=== PATIENT | female | born 1975 | race Caucasian/White ===

== ENCOUNTER → 2018-01-16 | Outpatient (CLI) | payer OTHER | LOC: BRMIMAGING 12:58 | DX: Z12.31 Encounter for screening mammogram for malignant neoplasm of breast (principal) ==

== ENCOUNTER → 2019-01-21 | Outpatient (CLI) | payer OTHER | LOC: BRMIMAGING 12:48 | DX: Z12.31 Encounter for screening mammogram for malignant neoplasm of breast (principal) ==